=== PATIENT | male | born 1955 | race Caucasian/White ===

== ENCOUNTER 2022-08-11 14:27 | Outpatient (CLI) | payer OTHER, SELFPAY ==
[2022-08-11 18:09] LABS: Albumin* 4.9 g/dL (3.3-5.0); Chloride* 103 mmol/L (96-114); Potassium* 4.8 mmol/L (3.6-5.1); Sodium* 140 mmol/L (135-149)
[2022-08-11 18:11] LABS: Cholesterol* 194 mg/dL (90-199); Estimated Glomerular Filt Rate 81 ml/min
[2022-08-11 18:12] LABS: Alanine Aminotransferase* 31 U/L (4-50); Alkaline Phosphatase* 96 U/L (40-150); Aspartate Amino Transferase* 31 U/L (12-35); Bilirubin Total* 0.6 mg/dL (0.1-1.5); Blood Urea Nitrogen* 13 mg/dL (7-30); Calcium* 10.1 mg/dL (8.4-10.6); Glucose* 97 mg/dL (60-115); HDL Cholesterol* 56 mg/dL (>=40); LDL Cholesterol Calculated 81 mg/dL (<100); Total Protein* 7.7 g/dL (6.0-8.3); Triglycerides* 287 mg/dL (40-149)
[2022-08-11 18:15] LABS: Carbon Dioxide* 28 mmol/L (20-32)
[2022-08-11 18:43] LABS: PSA Screen* 0.63 ng/mL (0.10-4.00)
== END 2022-08-11 14:28 | disposition home or self-care (01) ==
PROVIDERS: PCP Internal Medicine; Visit Provider Internal Medicine
DX: Z00.00 Encounter for general adult medical examination without abnormal findings (principal); E78.5 Hyperlipidemia, unspecified; Z12.5 Encounter for screening for malignant neoplasm of prostate
CPT/HCPCS: 80053; 80061; 84153

== ENCOUNTER 2022-08-29 13:00 | Outpatient (RCR) | payer OTHER, SELFPAY ==
--- NOTE | 2022-08-25 16:41 | SLP.DPN ---
Dr. Jeong Please review, sign and return Thanks Ellen Cespedes CUSTOM CAR BUILDER Daily Progress Note CUSTOM CAR BUILDER Daily Progress Note Start: 08/02/22 15:07 Freq: Status: Active Protocol: Document 08/04/22 16:26 HJS (Rec: 08/25/22 16:39 HJS [id number]) E-signed By Ellen Cespedes, [facility], CUSTOM CAR BUILDER CUSTOM CAR BUILDER Daily Progress Note Subjective Note Type Recertification Note Number of Visits Since Last Review 1 Subjective/Pain Comments Patient always pleasant and ready for therapy. He reports he hasn't started working with the [employer] yet. Goals/Functional Outcomes Goals/Functional Outcomes TIMBER FALLER GOAL 1)Patient will gain confidence in listening with cochlear implant alone without compensation strategies 2)Patient will listen with ease to gain information about people and the environment in all types of listening situations. SHORT TERM GOALS 1)Patient will identify with 80% accuracy words in a closed set (visual choice of 4 words, same syllable number, word initial phoneme diffence - manner, same final phoneme) in sentence medial position with no lip reading cues in a quiet environment. PROGRESS: 08/22 for set of 4 rhyming words; 25 word matrix 05/22 word stress: 05/22, sentence map 06/22 CONTINUE GOAL 2)Patient will increase listening comprehension through tracking of orally read paragraphs in presence of low levels of background noise with 90% accuracy and minimal cues. PROGRESS: He tracked with 100% accuracy but comprehension was 05/24 CONTINUE GOAL Recertification Information Review Period 05-07-22 to 08-05-22 Current Treatment Frequency 1 time every 6 weeks. Attendance Since Last Review 1 appointment Patient/Family/Caregiver is Satisfied Yes with Service Patient/Family/Caregiver is Satisfied Yes with Progress Progress Summary Patient has not started to work with [employer] but it sounds like he will be soon. He continues to improve but needs much practice. He was better able to follow along with material read aloud and answer comprehension questions. With smaller closed sets he is 100% accurate and his accuracy is increasing with larger closed sets. He has been having difficulty understanding people with masks on as many people with hearing loss have. Anticipate further gains with continued outpatient speech therapy. Rehab Potential/Disability [place] Very good Interventions Provided During Treatment Aural rehab Comments Frequency/Duration 1 time every 6-8 weeks Patient Will Be Discharged From Therapy Completion of LTG(s),Skills When Plateau,Independently Progressing Medical Necessity Justification of Training of Caregivers, Continued Skilled Service Progressing Towards Goals Initial Certification Date (Date of 02/11/21 First Visit to Therapy) Most Recent Visit 08/02/22 Recertification Start Date 08/05/22 Recertification Due Date 11/02/22 Rehab Potential Good due to progress to date and motivation. Therapist Signature & License Number Ellen Cespedes [facility]-CUSTOM CAR BUILDER,# [id number] Clinic Certification # #[id number] Patient's H.I.C.N.# # Physician Signature Shows Agreement with Dates & Medical Necessity Treatment Plan/Cert Physician Comment/Change Comment or Changes Physician Signature & Date Required Please Sign/Date Here
--- NOTE | 2022-11-23 08:58 | SLP.DPN ---
Dr. Jeong Please review, sign and return Thank you Ellen Cespedes, LOG WASHER LOG WASHER Daily Progress Note LOG WASHER Daily Progress Note Start: 08/02/22 15:07 Freq: Status: Active Protocol: Document 11/02/22 08:49 HUE (Rec: 11/23/22 08:54 HJS [id number]) E-signed By Ellen Cespedes CCC, LOG WASHER LOG WASHER Daily Progress Note Subjective Note Type Recertification Note Number of Visits Since Last Review 1 Subjective/Pain Comments Patient always pleasant and ready for therapy. At his last appointment he reports he hasn't started working with the [employer] yet. Patient and Insurance Information Insurance Name Medicare B Goals/Functional Outcomes Goals/Functional Outcomes ALF GOAL 1)Patient will gain confidence in listening with cochlear implant alone without compensation strategies 2)Patient will listen with ease to gain information about people and the environment in all types of listening situations. SHORT TERM GOALS 1)Patient will identify with 80% accuracy words in a closed set (visual choice of 4 words, same syllable number, word initial phoneme diffence - manner, same final phoneme) in sentence medial position with no lip reading cues in a quiet environment. PROGRESS: 08/22 for set of 4 rhyming words; 25 word matrix 05/22 word stress: 05/22, sentence map 8 CONTINUE GOAL 2)Patient will increase listening comprehension through tracking of orally read paragraphs in presence of low levels of background noise with 90% accuracy and minimal cues. PROGRESS: He tracked with 100% accuracy but comprehension was 05/24 CONTINUE GOAL Daily Assessment/POC Treating Therapist's Name & License Ellen Cespedes CCC-LOG WASHER, # Number [id number] Recertification Information Review Period 08-05-22 to 11-02-22 Current Treatment Frequency 1 time every 6 weeks. Attendance Since Last Review 1 appointment Patient/Family/Caregiver is Satisfied Yes with Service Patient/Family/Caregiver is Satisfied Yes with Progress Progress Summary Patient has not started to work with [employer] but it sounds like he will be soon. He continues to improve but needs much practice. He was better able to follow along with material read aloud and answer comprehension questions. With smaller closed sets he is 100% accurate and his accuracy is increasing with larger closed sets. He has been having difficulty understanding people with masks on as many people with hearing loss have. Anticipate further gains with continued outpatient speech therapy. Rehab Potential/Disability [place] Very good Interventions Provided During Treatment Aural rehab Comments Frequency/Duration 1 time every 6-8 weeks Patient Will Be Discharged From Therapy Completion of LTG(s),Skills When Plateau,Independently Progressing Medical Necessity Justification of Training of Caregivers, Continued Skilled Service Progressing Towards Goals Initial Certification Date (Date of 02/11/21 First Visit to Therapy) Most Recent Visit 08/29/22 Recertification Start Date 11/02/22 Recertification Due Date 01/31/23 Rehab Potential Good due to progress to date and motivation. Therapist Signature & License Number Ellen Cespedes, [facility]-LOG WASHER,# 7318 Clinic Certification # #[id number] Patient's H.I.C.N.# # Physician Signature Shows Agreement with Dates & Medical Necessity Treatment Plan/Cert Physician Comment/Change Comment or Changes Physician Signature & Date Required Please Sign/Date Here
--- NOTE | 2023-02-09 14:50 | SLP.DPN ---
Dr. Jeong Please review, sign and return Thank you Ellen Cespedes, LAMINATE FLOOR INSTALLER LAMINATE FLOOR INSTALLER Daily Progress Note LAMINATE FLOOR INSTALLER Daily Progress Note Start: 08/02/22 15:07 Freq: Status: Active Protocol: Document 01/31/23 14:44 HJS (Rec: 02/09/23 14:50 HJS [id number]) E-signed By Ellen Cespedes CCC, LAMINATE FLOOR INSTALLER LAMINATE FLOOR INSTALLER Daily Progress Note Subjective Note Type Recertification Note Number of Visits Since Last Review 0 Subjective/Pain Comments Patient always pleasant and ready for therapy. At his last appointment he reports he hasn't started working with the [employer] yet. Patient and Insurance Information Insurance Name Medicare B Goals/Functional Outcomes Goals/Functional Outcomes ASSISTED GOAL 1)Patient will gain confidence in listening with cochlear implant alone without compensation strategies 2)Patient will listen with ease to gain information about people and the environment in all types of listening situations. SHORT TERM GOALS 1)Patient will identify with 80% accuracy words in a closed set (visual choice of 4 words, same syllable number, word initial phoneme diffence - manner, same final phoneme) in sentence medial position with no lip reading cues in a quiet environment. PROGRESS: 08/22 for set of 4 rhyming words; 25 word matrix 10 word stress: 10, sentence map 8/10 CONTINUE GOAL 2)Patient will increase listening comprehension through tracking of orally read paragraphs in presence of low levels of background noise with 90% accuracy and minimal cues. PROGRESS: He tracked with 100% accuracy but comprehension was 7/12 CONTINUE GOAL Daily Assessment/POC Treating Therapist's Name & License Ellen Cespedes CCC-LAMINATE FLOOR INSTALLER, # Number [id number] Recertification Information Review Period 11-02-22 tp 01-31-23 Current Treatment Frequency 1 time every 6 weeks. Attendance Since Last Review no appointments Patient/Family/Caregiver is Satisfied Yes with Service Patient/Family/Caregiver is Satisfied Yes with Progress Progress Summary Patient has not started to work with [employer] but it sounds like he will be soon. He continues to improve but needs much practice. He was better able to follow along with material read aloud and answer comprehension questions. With smaller closed sets he is 100% accurate and his accuracy is increasing with larger closed sets. He has been having difficulty understanding people with masks on as many people with hearing loss have. Anticipate further gains with continued outpatient speech therapy. Rehab Potential/Disability [place] Good Interventions Provided During Treatment Aural rehab Comments Frequency/Duration 1 time every 8-10 weeks Patient Will Be Discharged From Therapy Completion of LTG(s),Skills When Plateau,Independently Progressing Medical Necessity Justification of Training of Caregivers, Continued Skilled Service Progressing Towards Goals Initial Certification Date (Date of 02/11/21 First Visit to Therapy) Most Recent Visit 08/29/22 Recertification Start Date 01/31/23 Recertification Due Date 05/01/23 Rehab Potential Good due to progress to date and motivation. Therapist Signature & License Number Ellen Cespedes, [facility]-LAMINATE FLOOR INSTALLER,# [id number] Clinic Certification # #[id number] Patient's H.I.C.N.# # Physician Signature Shows Agreement with Dates & Medical Necessity Treatment Plan/Cert Physician Comment/Change Comment or Changes Physician Signature & Date Required Please Sign/Date Here
== END 2023-06-01 23:59 | disposition home or self-care (01) ==
PROVIDERS: PCP Internal Medicine; Visit Provider Internal Medicine
DX: H91.90 Unspecified hearing loss, unspecified ear (principal); Z51.89 Encounter for other specified aftercare
CPT/HCPCS: 92507

== ENCOUNTER 2023-07-03 00:02 | Outpatient (CLI) | payer OTHER, SELFPAY | END 2023-07-03 00:03 | disposition home or self-care (01) | LOC: AMB 07-06 10:04 | PROVIDERS: PCP Internal Medicine; Visit Provider Family Medicine | DX: M79.601 Pain in right arm (principal) | CPT/HCPCS: A0425; A0429 ==

== ENCOUNTER 2023-07-03 00:20 | Emergency (ER) | payer OTHER, SELFPAY ==
[2023-07-03 00:24] VITALS: BP 144/84; PULSE 82; RESP 18; TEMP 36.1; O2SAT 95; BMI 24.4
--- NOTE | 2023-07-03 01:26 | CRLHL7_ITS ---
For Patients: As a result of the Cures Act, medical imaging exams and procedure reports are released immediately into your electronic medical record. You may view this report before your referring provider. If you have questions, please contact your health care provider. Indication: Pain Technique: Three views right elbow Comparison: None Findings: Bones: Alignment is normal. Small densities adjacent to the medial epicondyle. Joint spaces: Unremarkable. Soft tissues: Unremarkable. Impression: Small densities adjacent to the medial epicondyle may represent avulsion fracture fragments secondary to ligamentous injury of unknown acuity. Correlate with focal pain or tenderness in this region. Dictated by Fallon Gupta MD @ 07/03/2023 3:02:25 AM (Electronically Signed)
--- NOTE | 2023-07-03 01:29 | ED.GENADULT ---
HPI - General Adult General Chief complaint: Extremity Pain/Injury, Upper Stated complaint: R arm pain Time Seen by Provider: 07/03/23 01:17 History of Present Illness HPI narrative: EMR down time note on [facility], cut and paste into documentation during down time. ??68-year-old male presents to the emergency department with pain in the right arm area for the past 7 days.? Achy in nature, constant.? No exacerbating or alleviating factors.? He tried taking Tylenol earlier today with no significant improvement.? He has not sought any input from primary care or urgent care.? He called the ambulance for this in the middle of the night.? He reported that it hurt so he was unable to sleep.? Pain is located around the medial epicondyle area.? No trauma or injury.? No skin changes or bruising.? No weakness in the hand.? He has a notable history of cerebral palsy.? No prior similar symptoms.? No swelling or bruising to the joint, no recent fall.? No recent imaging, no prior history of similar symptoms.? Pain does radiate down into the hands a little bit but when asked specifically which fingers, he replies all of them on the palmar surface but it is very unclear if there is any radiculopathy.? He denies neck pain. Past medical history notable for cerebral palsy.? I did review his medications prior to down time it does not look like he takes any muscle relaxants.? Allergies noted from accompanying paperwork from [facility] suites.? Nonsmoker. ROS is negative for other musculoskeletal, skin, generalized, neurological or cardiac changes. Vital signs reviewed stable.? Generally he is awake and alert.? He reads lips and has a cochlear implant.? The head is atraumatic eyes with normal-appearing pupils and conjunctiva, normal visual gaze.? Oropharynx with acyanotic lips and moist membranes.? Heart with regular rate rhythm, no murmurs rubs or gallops lungs with good air entry in all lung salmon no wheezes rales or rhonchi.? Shoulders have normal range of motion and strength.? Surgical scarring on right hand consistent with prior surgical release, possibly of a contracture.? Both elbows have normal range of motion and no effusions.? There is point tenderness to the medial epicondyle area but no weakness appreciated.? No redness or surrounding warmth.? Normal range of motion of wrist.? 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 Skin warm and well perfused without any rash, bruise or signs of trauma.? We behavior and affect are appropriate.? He is friendly and does not appear in any kind of distress. Plan: Suspect medial epicondylitis, cannot exclude occult fracture, complications from his cerebral palsy, early cellulitis, other intra-articular pathology.? I recommended a trial of 20 mg of prednisone, 10 of Toradol and Flexeril 5 mg while we await x-ray findings. X-ray findings Impression: Small densities adjacent to the medial epicondyle may represent avulsion fracture fragments secondary to ligamentous injury of unknown acuity. Correlate with focal pain or tenderness in this region. Per my interpretation, patient has no injury, trauma, severe bony tenderness, effusion.? This is much less suspicious for chronic calcified tendonitis or old fracture as compared to an acute pathology.? Patient is noticing some improvement with the interventions given here in the emergency department already.? I would recommend that he follow-up with orthopedics for a 2nd opinion.? Discussed continued use of Tylenol, ice, short course of prednisone.? Muscle relaxant if needed at night.? Follow-up based on orthopedic recommendations within a couple of weeks, consider physical therapy.? Alarm symptoms reviewed and all questions answered. Discharge instructions on [facility] Diagnosis: Medial epicondylitis Unfortunately, our computer system is down for routine maintenance, this happens about once a month.? As we discussed, your symptoms seem consistent with medial epicondylitis, also known as golfer's elbow.? This is an inflammation of the muscles that help operate your hand and wrist.? This is a very common problem and tends to flare up from time to time.? Your x-ray indicates that you may have had an injury or trauma to this area in the past.? There are some small fragments that are most suspicious in my view to an old injury but I would like for you to follow-up with the orthopedic provider to be sure.? Since there is no recent trauma, injury or swelling, I do not think that this needs a brace or a cast. ?It is not emergent nor dangerous.? For pain, I recommend Tylenol 1000 mg every 6 hours.? If the pain is still bothersome, I recommend taking ibuprofen 600 mg up to every 6 hours.? Apply ice for 10 minutes up to every 3 hours to the painful area of the inner elbow.? I will also give you a short course of prednisone, and anti-inflammatory medication which should help considerably within a couple of days.? If the pain is bothersome at night, it is okay to use Tylenol p.m. and or melatonin as a sleep aid.? I have also given you a little bit of Flexeril, a muscle relaxant that will help you sleep for the next few days to use as needed. When the computers restart, I will place a referral to follow up with the orthopedic provider for you.? They will guide you further regarding this pain. If the pain becomes severe, there is significant swelling or inability to use the arm, you should come to the emergency department. Related Data Home Medications Medication Instructions Recorded Confirmed acetaminophen 500 mg tablet 500 mg PO DAILY PRN 06/20/22 04/05/23 (Acetaminophen Extra Strength) melatonin 3 mg capsule 3 mg PO .hs 06/20/22 04/05/23 valbenazine 40 mg capsule 40 mg PO .hs 06/20/22 04/05/23 (Ingrezza) trazodone 50 mg tablet 25 mg PO .hs PRN sleep 08/11/22 04/05/23 venlafaxine 75 mg capsule,extended 150 mg PO QDAY 08/11/22 04/05/23 release 24 hr Previous Rx's Medication Instructions Recorded sumatriptan succinate 50 mg tablet 50 mg PO .COMPLEX PRN migraine 11/25/22 headache #9 tabs albuterol sulfate 90 mcg/actuation 2 puff PO Q4H PRN shortness of 02/01/23 aerosol inhaler breath or wheezing #25.5 grams fluticasone 250 mcg-salmeterol 50 1 ea inhalation BID PRN asthma 02/01/23 mcg/dose blistr powdr for #180 ea inhalation pantoprazole 40 mg tablet,delayed 40 mg PO DAILY #90 tabs 02/01/23 release atorvastatin 10 mg tablet 10 mg PO .hs #90 tabs 02/10/23 gabapentin 100 mg capsule 100 mg PO .hs #90 caps 02/10/23 prednisone 20 mg tablet 20 mg PO BID Bronchitis #10 tabs 04/05/23 Allergies Allergy/AdvReac Type Severity Reaction Status Date / Time aspirin Allergy Intermediate Swelling Verified 04/05/23 14:50 of Lip/Tongue/Throat citalopram Allergy Intermediate low bp Verified 04/05/23 14:50 sertraline Allergy Mild Headache Verified 04/05/23 14:50 escitalopram AdvReac Unknown loss of Verified 04/05/23 14:50 contorl of tongue [facility] Medical History (Updated 04/05/23 @ 15:02 by Phoenix Jeong MD) Bronchitis ?J40 - Bronchitis, not specified as acute or chronic (ICD-10) Hyperlipidemia ?E78.5 - Hyperlipidemia, unspecified (ICD-10) Asthma ?J45.909 - Unspecified asthma, uncomplicated (ICD-10) Ankle injury ?S99.919A - Unspecified injury of unspecified ankle, initial encounter (ICD-10) Screening due ?Z13.9 - Encounter for screening, unspecified (ICD-10) Social History Smoking Status: Never smoker How often do you have a drink containing alcohol: never AUDIT-C Alcohol total score: 0 Non-prescribed substance use: denies use Exam Const: Vital Signs, click to edit/add: Vital Signs - 24 hr 07/03/23 00:24 07/03/23 03:00 Temperature 97 F L 97.2 F L Pulse Rate [Pulse Oximeter] 82 80 Respiratory Rate 18 18 Blood Pressure [Le ft Upper Arm] 144/84 H 140/80 H Pulse Oximetry 95 95 Oxygen Delivery Me thod Room Air Room Air Course Vital Signs Vital signs: Initial Vital Signs Temperature 97 F L 07/03/23 00:24 Temperature Source Temporal Artery Scan 07/03/23 00:24 Pulse Rate 82 07/03/23 00:24 Respiratory Rate 18 07/03/23 00:24 Blood Pressure 144/84 H 07/03/23 00:24 Blood Pressure Mean 104 07/03/23 00:24 Blood Pressure Position Supine 07/03/23 00:24 Pulse Oximetry 95 07/03/23 00:24 Oxygen Delivery Method Room Air 07/03/23 00:24 Vital Signs Temperature 97 F L 07/03/23 00:24 Pulse Rate 82 07/03/23 00:24 Respiratory Rate 18 07/03/23 00:24 Blood Pressure 144/84 H 07/03/23 00:24 Pulse Oximetry 95 07/03/23 00:24 Oxygen Delivery Method Room Air 07/03/23 00:24 Temperature 97.2 F L 07/03/23 03:00 Pulse Rate 80 07/03/23 03:00 Respiratory Rate 18 07/03/23 03:00 Blood Pressure 140/80 H 07/03/23 03:00 Pulse Oximetry 95 07/03/23 03:00 Oxygen Delivery Method Room Air 07/03/23 03:00 Discharge Plan Discharge Prescriptions: No Action prednisone 20 mg tablet 20 mg PO BID Qty: 10 0RF Ingrezza 40 mg capsule 40 mg PO .hs melatonin 3 mg capsule 3 mg PO .hs acetaminophen [Acetaminophen Extra Strength] 500 mg tablet 500 mg PO DAILY PRN venlafaxine 75 mg capsule,extended release 24hr 150 mg PO QDAY trazodone 50 mg tablet 25 mg PO .hs PRN (Reason: sleep) sumatriptan succinate 50 mg tablet 50 mg PO .COMPLEX PRN (Reason: migraine headache) Qty: 9 1RF Rx Instructions: ONE TAB AT ONSET OF HEADACHE, MAY REPEAT Q2H PRN, MAX 200 MG/24 HRS pantoprazole 40 mg tablet,delayed release (DR/EC) 40 mg PO DAILY Qty: 90 1RF fluticasone propion-salmeterol 250-50 mcg/dose blister with device 1 ea inhalation BID PRN (Reason: asthma) Qty: 180 1RF albuterol sulfate 90 mcg/actuation HFA aerosol inhaler 2 puff PO Q4H PRN (Reason: shortness of breath or wheezing) Qty: 25.5 6RF atorvastatin 10 mg tablet 10 mg PO .hs Qty: 90 1RF gabapentin 100 mg capsule 100 mg PO .hs Qty: 90 1RF Follow Up/Referrals: Phoenix Jeong MD [Primary Care Provider] -
[2023-07-03] MEDS: CYCLOBENZAPRINE HCL 10 MG TABLET PO (01:30)
[2023-07-03] MEDS: KETOROLAC 10 MG TABLET PO (01:30)
[2023-07-03] MEDS: predniSONE 10 MG TABLET 20 MG PO (01:30)
[2023-07-03 03:00] VITALS: BP 140/80; PULSE 80; RESP 18; TEMP 36.2; O2SAT 95
--- NOTE | 2023-07-03 04:12 | PC.NURSE ---
attempted to call patients contacts daughter and son in law per patient request for ride after DC, ML to return call to ER. holter scanning technician able to give patient ride home. patient stated understanding to DC instructions. all belongings sent with patient home.
== END 2023-07-03 04:15 | disposition home or self-care (01) ==
LOC: ED 04:10
PROVIDERS: Emergency Provider Family Medicine; PCP Internal Medicine
DX: M77.01 Medial epicondylitis, right elbow (principal)
CPT/HCPCS: 73080; 99283; 99284; A9270; J7512

== ENCOUNTER 2023-11-20 14:12 | Outpatient (CLI) | payer OTHER, SELFPAY | END 2023-11-20 14:13 | disposition home or self-care (01) | LOC: AMB 11-24 10:19 | PROVIDERS: PCP Internal Medicine; Visit Provider Family Medicine | DX: S09.90XA Unspecified injury of head, initial encounter (principal); W18.30XA Fall on same level, unspecified, initial encounter; Y92.039 Unspecified place in apartment as the place of occurrence of the external cause ==

== ENCOUNTER 2023-11-20 14:32 | Emergency (ER) | payer OTHER, SELFPAY ==
[2023-11-20 14:38] VITALS: BP 144/96; PULSE 90; RESP 16; TEMP 36.7; O2SAT 96; BMI 31.0
--- NOTE | 2023-11-20 14:54 | CRLHL7_ITS ---
For Patients: As a result of the Century Cures Act, medical imaging exams and procedure reports are released immediately into your electronic medical record. You may view this report before your referring provider. If you have questions, please contact your health care provider. INDICATION: Fall TECHNIQUE: Noncontrast axial CT of the head. Coronal and sagittal reformats. Bone and soft tissue algorithms. COMPARISON: No relevant comparison studies available at this institution. FINDINGS: Postsurgical changes of bilateral canal wall up mastoidectomy and cochlear implant. The mastoid bowls are clear. There is mild left and moderate right presumed EAC cerumen. No acute skull fracture identified. No acute intracranial hemorrhage, extra-axial fluid collection, or acute/subacute transcortical infarct identified given streak artifact limitations. Mild generalized cerebral volume loss. Midline structures are unremarkable. Calcified plaquing is present at the bilateral carotid siphons. Left inferior maxillary sinus mucous retention cyst/polyp. Chronic appearing rightward deviated nasal septal defect. No paranasal sinus air-fluid level. Mild right asymmetric TMJ arthrosis. Unremarkable orbits. IMPRESSION: 1. No skull fracture or acute intracranial hemorrhage identified given streak artifact from bilateral cochlear implants. Please note that all CT scans at this facility use dose modulation, iterative reconstruction, and/or weight-based dosing when appropriate to reduce radiation dose to as low as reasonably achievable. Dictated by Alexandrea Li MD @ 11/20/2023 3:42:49 PM (Electronically Signed)
--- NOTE | 2023-11-20 15:02 | ED.GENADULT ---
HPI - General Adult General Date Seen: 11/20/23 Chief complaint: Fall/Minor Trauma Stated complaint: fall Time Seen by Provider: 11/20/23 14:35 Source: patient, EMS and RN notes reviewed Mode of arrival: EMS Limitations: physical limitation History of Present Illness HPI narrative: The patient is a 68-year-old male with history of deafness, status post cochlear implants about 5 years ago. 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 He lives independently at [facility], reports that he had a fall today and they sent him here by ambulance just to get checked out. He does say that he fell couple of weeks ago, but that in general falls are not common for him. Paramedics put a cervical collar on, he denies neck pain to me. He says he did hit his head but denies headache, did not have loss of consciousness. He is not anticoagulated. He denies recent illness, fevers, vomiting, diarrhea, he has not had chest pain, shortness of breath, palpitations, abdominal or back pain. He has a small scrape on his right elbow and his right 5th finger but denies other injuries. Related Data Home Medications Medication Instructions Recorded Confirmed acetaminophen 500 mg tablet 500 mg PO DAILY PRN 06/20/22 10/04/23 (Acetaminophen Extra Strength) melatonin 3 mg capsule 3 mg PO .hs 06/20/22 10/04/23 valbenazine 40 mg capsule 40 mg PO .hs 06/20/22 10/04/23 (Ingrezza) trazodone 50 mg tablet 25 mg PO .hs PRN sleep 08/11/22 10/04/23 venlafaxine 75 mg capsule,extended 150 mg PO QDAY 08/11/22 10/04/23 release 24 hr Previous Rx's Medication Instructions Recorded sumatriptan succinate 50 mg tablet 50 mg PO .COMPLEX PRN migraine 11/25/22 headache #9 tabs albuterol sulfate 90 mcg/actuation 2 puff PO Q4H PRN shortness of 02/01/23 aerosol inhaler breath or wheezing #25.5 grams prednisone 20 mg tablet 20 mg PO BID Bronchitis #10 tabs 07/26/23 atorvastatin 10 mg tablet 10 mg PO .hs #90 tabs 10/04/23 fluticasone 250 mcg-salmeterol 50 1 ea inhalation BID PRN asthma 10/04/23 mcg/dose blistr powdr for #180 ea inhalation gabapentin 100 mg capsule 100 mg PO .hs #90 caps 10/04/23 pantoprazole 40 mg tablet,delayed 40 mg PO DAILY #90 tabs 10/04/23 release Allergies Allergy/AdvReac Type Severity Reaction Status Date / Time aspirin Allergy Intermediate Swelling Verified 10/04/23 13:01 of Lip/Tongue/Throat citalopram Allergy Intermediate low bp Verified 10/04/23 13:01 sertraline Allergy Mild Headache Verified 10/04/23 13:01 escitalopram AdvReac Unknown loss of Verified 10/04/23 13:01 contorl of tongue Review of Systems Status of ROS: Reports: 10 or more systems reviewed and unremarkable except as noted in History and below [facility] Medical History Elbow pain ?M25.529 - Pain in unspecified elbow (ICD-10) Bronchitis ?J40 - Bronchitis, not specified as acute or chronic (ICD-10) Hyperlipidemia ?E78.5 - Hyperlipidemia, unspecified (ICD-10) Asthma ?J45.909 - Unspecified asthma, uncomplicated (ICD-10) Ankle injury ?S99.919A - Unspecified injury of unspecified ankle, initial encounter (ICD-10) Screening due ?Z13.9 - Encounter for screening, unspecified (ICD-10) Social History What is your current living situation?: I presently have a place to live Problems where you live: no known problems In the past 12 months, utilities in danger of being shut off: no In past 12 months, lack of transportation kept you from medical appts, meetings, work, or getting things needed for daily living: no In the past 12 mos, have been you worried that your food would run out before you had money to buy more?: never true In the past 12 mos, the food you bought just didn't last and you didn't have money to buy more?: never true Smoking Status: Never smoker How often do you have a drink containing alcohol: never AUDIT-C Alcohol total score: 0 Non-prescribed substance use: denies use How often does anyone, including family, friends and others, physically hurt you: never How often does anyone, including family, friends and others, insult or talk down to you: never How often does anyone, including family, friends and others, threaten you with harm: never How often does anyone, including family, friends and others, scream or curse at you: never Little interest or pleasure in doing things: not at all Feeling down, depressed, or hopeless: not at all Exam Narrative: Exam Narrative: Vital signs as noted above. In general, an alert, nontoxic elderly male, conversant, cooperative. Head: Normocephalic, atraumatic. No hematoma, bruising, tenderness. Eyes: Pupils are equal reactive. Extraocular movements are full. Conjunctivae are normal. ENT: Mucous membranes are moist. Bilateral cochlear implants. No facial trauma. Neck: Supple without lymphadenopathy. Nontender to palpation. Heart: Regular rate and rhythm. No murmur or rub. Lungs: Clear bilaterally. No increased work of breathing, crackles or wheezes. Abdomen: Soft and nontender. No organomegaly. Extremities: Well perfused. No edema. No calf tenderness. Pulses intact. He has a small abrasion on his elbow and a small abrasion on the 5th finger over the PIP joint. He has full range of motion and no bony tenderness. Neurologic: Patient is alert and oriented to person and place. Speech is consistent with lifelong deafness. Face is symmetric. Moves all extremities equally. Affect: Normal. Skin: Warm and dry. Well perfused. Const: Vital Signs, click to edit/add: Vital Signs - 24 hr 11/20/23 14:38 11/20/23 15:30 Temperature 98.1 F Pulse Rate [Pulse Oximeter] 90 93 Respiratory Rate 16 Blood Pressure [Ri ght Upper Arm] 144/96 H 151/93 H Pulse Oximetry 96 95 Oxygen Delivery Me thod Room Air Room Air Documenting provider has reviewed patient's vital signs: yes Course Course ED Course: Patient tells me he was sent here to get ?checked out due to imbalance leading to fall. He does not describe any kind of vertigo or ongoing symptoms. Will check some basic labs, EKG by my review shows normal sinus rhythm, ventricular rate of 90. No ST segment changes, normal T-waves. We will do a head CT given advanced age and minor head trauma. CT scan by my review shows artifact related to his cochlear implants, but I do not see anything that appears acute. Final radiology read is as follows:FINDINGS: Postsurgical changes of bilateral canal wall up mastoidectomy and cochlear implant. The mastoid bowls are clear. There is mild left and moderate right presumed EAC cerumen. No acute skull fracture identified. No acute intracranial hemorrhage, extra-axial fluid collection, or acute/subacute transcortical infarct identified given streak artifact limitations. Mild generalized cerebral volume loss. Midline structures are unremarkable. Calcified plaquing is present at the bilateral carotid siphons. Left inferior maxillary sinus mucous retention cyst/polyp. Chronic appearing rightward deviated nasal septal defect. No paranasal sinus air-fluid level. Mild right asymmetric TMJ arthrosis. Unremarkable orbits. IMPRESSION: 1. No skull fracture or acute intracranial hemorrhage identified given streak artifact from bilateral cochlear implants. Labs are unremarkable, white blood cell count is 6, hemoglobin is 14.9. Electrolytes are within normal limits including a sodium of 140 and potassium 4.2, BUN and creatinine are 11 and 0.9 respectively. Blood sugars 107. Urinalysis is pending, but I think at this point we can plan on sending him home. If the urine is significantly abnormal would consider treatment. Would recommend that he have a walker available if he is feeling unsteady. Vital Signs Vital signs: Initial Vital Signs Temperature 98.1 F 11/20/23 14:38 Temperature Source Temporal Artery Scan 11/20/23 14:38 Pulse Rate 90 11/20/23 14:38 Pulse Rhythm Regular 11/20/23 14:38 Respiratory Rate 16 11/20/23 14:38 Blood Pressure 144/96 H 11/20/23 14:38 Blood Pressure Mean 112 H 11/20/23 14:38 Blood Pressure Position Sitting 11/20/23 14:38 Pulse Oximetry 96 11/20/23 14:38 Oxygen Delivery Method Room Air 11/20/23 14:38 Vital Signs Temperature 98.1 F 11/20/23 14:38 Pulse Rate 90 11/20/23 14:38 Respiratory Rate 16 11/20/23 14:38 Blood Pressure 144/96 H 11/20/23 14:38 Pulse Oximetry 96 11/20/23 14:38 Oxygen Delivery Method Room Air 11/20/23 14:38 Temperature 98.1 F 11/20/23 14:38 Pulse Rate 93 11/20/23 15:30 Respiratory Rate 16 11/20/23 14:38 Blood Pressure 151/93 H 11/20/23 15:30 Pulse Oximetry 95 11/20/23 15:30 Oxygen Delivery Method Room Air 11/20/23 15:30 Medical Decision Making Lab Data Labs: Lab Results 11/20/23 11/20/23 Range/Units 15:07 16:00 WBC 6.18 (4.50-11.00) K/uL RBC 5.04 (4.30-5.90) m/uL Hgb 14.9 (13.5-17.5) gm/dL Hct 44.6 (37.0-53.0) % MCV 89 (80-100) fL MCH 30 (26-34) pg MCHC 33 (32-36) gm/dL RDW Coeff of Caesar 12.9 (11.5-15.5) % Plt Count 431 (140-440) K/uL Neut % (Auto) 60.4 (42.0-72.0) % Lymph % (Auto) 23.1 (20-44) % [place] % (Auto) 9.4 (0.0-11.0) % Eos % (Auto) 6.3 (0.0-7.0) % Baso % (Auto) 0.6 (0.0-3.0) % Neut # (Auto) 3.73 (1.7-7.0) K/uL Lymph # (Auto) 1.43 (0.90-2.90) K/uL [place] # (Auto) 0.60 (0.00-0.90) K/UL Eos # (Auto) 0.39 (0.00-0.50) K/uL Baso # (Auto) 0.04 (0.00-0.30) K/uL Abs Immat Gran (auto) 0.01 (0.00-0.30) K/uL Imm/Tot Granulo (auto) 0.2 % Sodium 140 (135-149) mmol/L Potassium 4.2 (3.6-5.1) mmol/L Chloride 106 (96-114) mmol/L Carbon Dioxide 27 (20-32) mmol/L Anion Gap 7 (7-15) mEq/L BUN 11 (7-30) mg/dL Creatinine 0.9 (0.5-1.5) mg/dL Estimated Creat Clear 68.74 Estimated GFR 92 ml/min Glucose 107 (60-115) mg/dL Calcium 9.0 (8.4-10.6) mg/dL Urine Color Yellow (Yellow) Urine Appearance Clear (Clear) Urine pH 6.0 (5.0-8.5) Ur Specific [place] 1.020 (1.000-1.030) Urine Protein Negative (Negative) Urine Glucose (UA) Negative (Negative) Urine Ketones Negative (Negative) Urine Blood Negative (Negative) Urine Nitrite Negative (Negative) Urine Bilirubin Negative (Negative) Urine Urobilinogen 0.2 (0.2-1.0) Ur Leukocyte Esterase Negative (Negative) Urine RBC 2-5 A (0-2) Urine WBC 2-5 (0-5) Urine WBC Clumps None (None) Ur Squamous Epith Cells None (None-Few) Amorphous Sediment Few A (None) Urine Bacteria None (None) Discharge Plan Discharge Clinical Impression: Multiple abrasions, Fall Patient Disposition: Home, Self-Care Condition: Stable Instructions: Abrasion (ED) Additional Instructions: Labs and CT scan today are normal. See primary care for ongoing concerns. Prescriptions: No Action prednisone 20 mg tablet 20 mg PO BID Qty: 10 0RF atorvastatin 10 mg tablet 10 mg PO .hs Qty: 90 0RF fluticasone propion-salmeterol 250-50 mcg/dose blister with device 1 ea inhalation BID PRN (Reason: asthma) Qty: 180 1RF gabapentin 100 mg capsule 100 mg PO .hs Qty: 90 0RF pantoprazole 40 mg tablet,delayed release (DR/EC) 40 mg PO DAILY Qty: 90 0RF Ingrezza 40 mg capsule 40 mg PO .hs melatonin 3 mg capsule 3 mg PO .hs acetaminophen [Acetaminophen Extra Strength] 500 mg tablet 500 mg PO DAILY PRN venlafaxine 75 mg capsule,extended release 24hr 150 mg PO QDAY trazodone 50 mg tablet 25 mg PO .hs PRN (Reason: sleep) sumatriptan succinate 50 mg tablet 50 mg PO .COMPLEX PRN (Reason: migraine headache) Qty: 9 1RF Rx Instructions: ONE TAB AT ONSET OF HEADACHE, MAY REPEAT Q2H PRN, MAX 200 MG/24 HRS albuterol sulfate 90 mcg/actuation HFA aerosol inhaler 2 puff PO Q4H PRN (Reason: shortness of breath or wheezing) Qty: 25.5 6RF Follow Up/Referrals: Phoenix Jeong MD [Primary Care Provider] - Stand Alone Forms: [email or web address] Info Instructions
[2023-11-20 15:14] LABS: Basophils Absolute Auto 0.04 K/uL (0.00-0.30); Basophils Percent Auto 0.6 % (0.0-3.0); Eosinophils Absolute Auto 0.39 K/uL (0.00-0.50); Eosinophils Percent Auto 6.3 % (0.0-7.0); Hematocrit 44.6 % (37.0-53.0); Hemoglobin* 14.9 gm/dL (13.5-17.5); Immature Granulocytes Abs Auto 0.01 K/uL (0.00-0.30); Immature Granulocytes Pct Auto 0.2 %; Lymphocytes Absolute Auto 1.43 K/uL (0.90-2.90); Lymphocytes Percent Auto 23.1 % (20-44); Mean Corpuscular HGB Conc 33 gm/dL (32-36); Mean Corpuscular Hemoglobin 30 pg (26-34); Mean Corpuscular Volume 89 fL (80-100); Monocytes Percent Auto 9.4 % (0.0-11.0); Neutrophils Absolute Auto 3.73 K/uL (1.7-7.0); Neutrophils Percent Auto 60.4 % (42.0-72.0); Platelet Count* 431 K/uL (140-440); RDW Coefficient of Variation % 12.9 % (11.5-15.5); Red Blood Count 5.04 m/uL (4.30-5.90); White Blood Count* 6.18 K/uL (4.50-11.00)
[2023-11-20 15:24] LABS: Slide Review Reflex No
[2023-11-20 15:25] LABS: Chloride* 106 mmol/L (96-114); Potassium* 4.2 mmol/L (3.6-5.1); Sodium* 140 mmol/L (135-149)
[2023-11-20 15:28] LABS: Anion Gap 7 mEq/L (7-15); Carbon Dioxide* 27 mmol/L (20-32); Creatinine* 0.9 mg/dL (0.5-1.5); Est. Creatinine Clearance* 68.74; Estimated Glomerular Filt Rate 92 ml/min
[2023-11-20 15:29] LABS: Blood Urea Nitrogen* 11 mg/dL (7-30); Glucose* 107 mg/dL (60-115)
[2023-11-20 15:30] VITALS: BP 151/93; PULSE 93; O2SAT 95
[2023-11-20 16:18] LABS: Appearance Urine Clear (Clear); Bilirubin Urine Negative (Negative); Blood Urine Negative (Negative); Color Urine Yellow (Yellow); Glucose Urine Negative (Negative); Ketones Urine Negative (Negative); Leukocyte Esterase Urine Negative (Negative); Nitrite Urine Negative (Negative); Protein Urine Negative (Negative); Urobilinogen Urine 0.2 (0.2-1.0)
[2023-11-20 16:26] LABS: Amorphous Sediment Urine Few
--- NOTE | 2023-11-20 16:40 | ED.NURSE ---
Pt stated that he felt off-balance and almost fell while in the bathroom while providing a urine sample earlier in his visit. Pt concerned about feeling his balance feeling off during that event. Pt states he only felt off balance while he was trying to collect the urine sample, has not felt off balance since and has stable gait to and from restroom. MD notified, MD advised that pt should utilize a walker at home if he continues to have balance issues while ambulating. Pt advised of MD recommendation to use a walker at home if needed.
== END 2023-11-20 16:57 | disposition home or self-care (01) ==
PROVIDERS: Emergency Provider Emergency Medicine; PCP Internal Medicine
DX: S50.311A Abrasion of right elbow, initial encounter (principal); S60.410A Abrasion of right index finger, initial encounter; W18.30XA Fall on same level, unspecified, initial encounter; Z91.81 History of falling
CPT/HCPCS: 36415; 70450; 80048; 81001; 85025; 93005; 99283; 99284; 99285

== ENCOUNTER 2024-12-18 10:26 | Outpatient (CLI) | payer OTHER, SELFPAY | END 2024-12-18 10:27 | disposition home or self-care (01) | LOC: NFLDREF 12-23 18:51 | PROVIDERS: PCP Internal Medicine; Referring Provider Internal Medicine; Visit Provider Internal Medicine | DX: F32.A Depression, unspecified (principal); E78.5 Hyperlipidemia, unspecified; G80.9 Cerebral palsy, unspecified; K21.9 Gastro-esophageal reflux disease without esophagitis; G56.90 Unspecified mononeuropathy of unspecified upper limb; Z12.5 Encounter for screening for malignant neoplasm of prostate | CPT/HCPCS: 80053; 80061; G0103 ==